=== PATIENT | male | born 1940 | race Caucasian/White ===

== ENCOUNTER 2019-09-03 11:52 | Outpatient (CLI) | payer MEDICARE, OTHER ==
--- NOTE | 2019-09-03 12:21 | RAD ---
2 VIEW CHEST: Date: 09/03/19 INDICATION: COPD. History of smoking. FINDINGS: There is hyperexpansion consistent with COPD. Scattered calcified granuloma in the left lower lung. A focal nodular density with slight spiculation in the left upper lung field. This should be further evaluated with chest CT. Heart size normal. Vascular markings normal. The osseous structures show wedge compression of lower t horacic vertebra. IMPRESSION: 1. Volume changes of COPD. 2. Spiculated nodular opacity in left upper lobe. Recommend further evaluation with chest CT. Correl ation made to a prior chest CT from 01/03/17 revealed evidence of bilateral pneumonia. This nodular o pacity was not apparent on that CT. 3. There is evidence of prior granulomatous process. 4. Wedge compression of lower thoracic vertebra. 5. No evidence of focal infiltrate. CODE T. CODE LN. POS: [facility]
== END 2019-09-03 11:53 | disposition home or self-care (01) ==
LOC: BICRAD 11:52
PROVIDERS: ATTEND Family Medicine
DX: F17.210 Nicotine dependence, cigarettes, uncomplicated (principal); J44.9 Chronic obstructive pulmonary disease, unspecified; R91.8 Other nonspecific abnormal finding of lung field
CPT/HCPCS: 36415; 71046; 80053; 82607; 82746; 84443; 85025

== ENCOUNTER 2019-11-01 15:14 | Outpatient (CLI) | payer MEDICARE, OTHER ==
[~2019-11-01 15:14] MED LIST: Iopamidol-370 76% 500 ML 1 ML ONE
[2019-11-01 15:47] LABS: Estimated GFR-MDRD - POC Greater than 90
--- NOTE | 2019-11-01 16:18 | CT ---
CT CHEST WITH CONTRAST CLINICAL INDICATION: Cough. Abnormal chest x-ray. COMPARISON: CT thorax on 01/03/2017 as well as chest x-ray on 09/03/2019. FINDINGS: Aorta: Dense vascular calcifications are seen in the abdominal aorta and in the coronary arteries. Lungs: Linear bibasilar scarring versus atelectasis is present. Few scattered calcified granulomata a re seen in the lower lobes. No discrete pulmonary nodule, mass, or pleural effusion is identified. Prior chest x-ray suggested spiculated nodule in the left upper lobe, but no pulmonary nodule is seen . The parenchymal densities scattered throughout the lungs on the prior study in 2017 have resolved. Mediastinum: No enlarged lymph nodes are seen by CT size criteria. Calcified subcarinal and bilateral hilar lymph nodes are seen related to prior granulomatous disease. There are eccentric low-attenuation areas seen in the posterior aspect of each distal mainstem bronchus which is not thou ght to be related to mass lesions and are probably related to debris or possibly secondary to aspiration. There is mild thickening involving a proximal left lower lobe bronchus which may be relat ed to bronchitis. Thyroid gland: Normal CT appearance. Osseous structures: A burst fracture involves the T12 vertebral body which was also present on prior study in 2017. There is at least 75% loss of height anteriorly involving this vertebral body. A mild compression fracture also involves the superior endplate of the L1 vertebral body, but this was also present on study in 2017. Retropulsion of fracture fragments involving the burst fracture of the T2 vertebral body resulting in mild effacement of the ventral subarachnoid space. Scattered degen erative changes are seen in the spine. Posterior bilateral remote rib fractures are present. Chest wall: No abnormality visualized. Upper abdomen: A 4.5 cm exophytic hypodense lesion is seen in the inferior pole left kidney incomplet daniele imaged but demonstrates attenuation coefficient most compatible with a cyst. Closely adjacent additional fluid attenuation lesion is also seen and also likely due to a renal cyst. Subcentimeter t oo small to characterize hypodense lesion is seen in the midportion left kidney. IMPRESSION: 1. Small eccentric filling defects within the distal aspect of each mainstem bronchus which may be re lated to debris and secondary to aspiration. There is minimal thickening involving a proximal left lower lobe bronchus which could be related to bronchitis. 2. No pulmonary nodule or mass is seen in the lungs bilaterally. Few calcified granulomata are seen. 3. Linear scar versus atelectasis is present at each lung base. 4. Burst fracture T12 vertebral body with compression fracture L1 vertebral body which were also pres ent on study in 2017. 5. Left renal cysts with too small to characterize hypodense lesion left kidney.
== END 2019-11-01 15:15 | disposition home or self-care (01) ==
LOC: BICCT 15:14
PROVIDERS: ATTEND Family Medicine
DX: J44.9 Chronic obstructive pulmonary disease, unspecified (principal); F17.209 Nicotine dependence, unspecified, with unspecified nicotine-induced disorders; R93.89 Abnormal findings on diagnostic imaging of other specified body structures; S22.081D Stable burst fracture of T11-T12 vertebra, subsequent encounter for fracture with routine healing; S32.019D Unspecified fracture of first lumbar vertebra, subsequent encounter for fracture with routine healing; N28.1 Cyst of kidney, acquired; N28.89 Other specified disorders of kidney and ureter; J98.09 Other diseases of bronchus, not elsewhere classified; J84.10 Pulmonary fibrosis, unspecified
CPT/HCPCS: 71260; 82565; Q9967